=== PATIENT | female | born 1980 | race Two or more races ===

== ENCOUNTER 2020-02-21 15:55 | Emergency (ER) | payer MEDICARE, MEDICAID ==
[~2020-02-21] VITALS: Ht 154.9 cm; Wt 139.0 kg
[~2020-02-21 15:55] MED LIST: BUPR300T86 PO; BUTA-281 PO; CLON-371 PO; DOCU-28 PO; HYDR-3972 PO; LEVO150T8 PO; MOME13HF INH; ONDA8TAB6 PO; TIZA4TAB11 PO; TRAZ-251 PO
[2020-02-21 16:03] VITALS: BP 158/96
[2020-02-21] MEDS ORDERED: HYDROcodone/acetaminophen 10/325mg tab PO ONE (16:25)
[2020-02-21] MEDS ORDERED: ketorolac trometh inj. 60 MG/2 ML VIAL IM ONE (16:25)
[2020-02-21] MEDS ORDERED: dexamethasone sod phosphate 10mg/ml inj IM STA (16:25)
[2020-02-21] MEDS ORDERED: GABA600T PO (16:26)
== END 2020-02-21 17:39 | disposition home or self-care (01) ==
LOC: ER 15:56
DX: G51.1 Geniculate ganglionitis (principal); G43.909 Migraine, unspecified, not intractable, without status migrainosus; G89.29 Other chronic pain; F41.9 Anxiety disorder, unspecified; Z90.49 Acquired absence of other specified parts of digestive tract; Z98.890 Other specified postprocedural states; Z91.040 Latex allergy status; Z91.018 Allergy to other foods; Z79.899 Other long term (current) drug therapy
CPT/HCPCS: 96372; 99284; J1100; J1885

== ENCOUNTER 2020-02-25 21:01 | Emergency (ER) | payer MEDICARE, MEDICAID ==
[~2020-02-25] VITALS: Ht 157.5 cm; Wt 139.0 kg
[~2020-02-25 21:01] MED LIST changes: +GABA600T PO
[2020-02-25] MEDS ORDERED: carBAMazepine 100mg chewable tablet PO ONE (22:45)
[2020-02-25] MEDS ORDERED: ketorolac tromethamine 15mg/ml inj. IM ONE (23:25)
[2020-02-25] MEDS ORDERED: HYDROcodone/acetaminophen 5mg/325mg tablet PO ONE (23:25)
[2020-02-25] MEDS ORDERED: triamcinolone acetonide 40mg/ml inj IM ONE (23:25)
[2020-02-25] MEDS ORDERED: HYDR-3965 PO (23:34)
[2020-02-25 23:47] VITALS: BP 160/94
== END 2020-02-26 | disposition home or self-care (01) ==
LOC: ER 02-26 01:43
DX: R51 Headache (principal); G89.29 Other chronic pain; F41.9 Anxiety disorder, unspecified; Z90.49 Acquired absence of other specified parts of digestive tract; Z98.890 Other specified postprocedural states; Z91.040 Latex allergy status; Z88.8 Allergy status to other drugs, medicaments and biological substances; Z79.899 Other long term (current) drug therapy
CPT/HCPCS: 96372; 99284; J1885; J3301

== ENCOUNTER 2021-05-22 12:46 | Emergency (ER) | payer MEDICARE, MEDICAID ==
[~2021-05-22] VITALS: Ht 154.9 cm; Wt 143.2 kg
[2021-05-22 13:16] VITALS: BP 168/129
[2021-05-22] MEDS ORDERED: IOHEXOL 12MG/ML oral solution 500 ML BOTTLE PO ONE (13:20)
[2021-05-22 13:50] LABS: BASOPHILS % (AUTO) 0.3 % (0-1); EOSINOPHILS # (AUTO) 0.3 X10'3 (0-0.9); EOSINOPHILS % (AUTO) 2.6 % (0-6); HEMATOCRIT 45.4 % (35.0-45.0); HEMOGLOBIN 15.3 g/dl (12.0-16.0); LYMPHOCYTES # (AUTO) 2.7 X10'3 (1.1-4.8); LYMPHOCYTES % (AUTO) 22.3 % (21-51); MEAN CORPUSCULAR HGB CONC 33.7 g/dL (33.0-36.5); MEAN PLATELET VOLUME 6.8 FL (7.4-10.4); MONOCYTES # (AUTO) 0.7 X10'3 (0-0.9); MONOCYTES % (AUTO) 5.6 % (2-12); NEUTROPHILS # (AUTO) 8.3 X10'3 (1.8-7.7); NEUTROPHILS % (AUTO) 69.2 % (42-75); PLATELET COUNT 425 X10'3 (140-440); RED BLOOD COUNT 4.93 X10'6 (4.20-5.60)
[2021-05-22 13:53] LABS: ALANINE AMINOTRANSFERASE 30 U/L (12-78); ALBUMIN 3.4 G/DL (3.4-5.0); ALBUMIN/GLOBULIN RATIO 0.7 (1.1-1.5); ALKALINE PHOSPHATASE 125 IU/L (46-116); ANION GAP 7 (8-16); ASPARTATE AMINO TRANSFERASE 22 U/L (10-37); BILIRUBIN,TOTAL 0.2 MG/DL (0.1-1.0); BLOOD UREA NITROGEN 18 MG/DL (7-18); BUN/CREATININE RATIO 21.2 (6.6-38.0); CHLORIDE 106 MMOL/L (99-107); CREATININE 0.85 MG/DL (0.40-0.90); GLUCOSE 91 MG/DL (70-104); SODIUM 141 MMOL/L (135-145); TOTAL CARBON DIOXIDE 27.7 MMOL/L (24-32); TOTAL PROTEIN 8.2 G/DL (6.4-8.2); eGFR 74 ML/MIN
--- NOTE | 2021-05-22 16:19 | NUR ---
pt seen and dc'd by provider
== END 2021-05-22 16:21 | disposition home or self-care (01) ==
LOC: ER 12:46
DX: S29.011A Strain of muscle and tendon of front wall of thorax, initial encounter (principal); R07.89 Other chest pain; K92.0 Hematemesis; G43.909 Migraine, unspecified, not intractable, without status migrainosus; G89.29 Other chronic pain; F41.9 Anxiety disorder, unspecified; Z87.440 Personal history of urinary (tract) infections; Z90.49 Acquired absence of other specified parts of digestive tract; Z98.890 Other specified postprocedural states; Z91.040 Latex allergy status; Z88.8 Allergy status to other drugs, medicaments and biological substances; Z91.011 Allergy to milk products; Z79.899 Other long term (current) drug therapy; X58.XXXA Exposure to other specified factors, initial encounter; Y93.89 Activity, other specified; Y92.89 Other specified places as the place of occurrence of the external cause; Y99.8 Other external cause status
CPT/HCPCS: 36415; 70490; 71250; 80053; 85025; 93005; 99285

== ENCOUNTER 2021-12-20 11:22 | Emergency (ER) | payer MEDICARE, MEDICAID ==
[~2021-12-20] VITALS: Ht 154.9 cm; Wt 144.1 kg
[2021-12-20] MEDS ORDERED: proCHLORperazine 10 MG/2 ml inj IV ONE (11:55)
[2021-12-20] MEDS ORDERED: diphenhydrAMINE 50 mg/ml inj IV ONE (11:55)
[2021-12-20] MEDS ORDERED: NAPR-56 PO (13:56)
[2021-12-20 14:05] VITALS: BP 131/81
== END 2021-12-20 14:06 | disposition home or self-care (01) ==
LOC: ER 11:23
DX: G43.909 Migraine, unspecified, not intractable, without status migrainosus (principal); R11.2 Nausea with vomiting, unspecified; G89.29 Other chronic pain; G50.0 Trigeminal neuralgia; Z87.440 Personal history of urinary (tract) infections; Z90.49 Acquired absence of other specified parts of digestive tract; Z98.891 History of uterine scar from previous surgery; Z90.710 Acquired absence of both cervix and uterus; Z88.8 Allergy status to other drugs, medicaments and biological substances; Z91.040 Latex allergy status; Z91.011 Allergy to milk products; Z79.899 Other long term (current) drug therapy
CPT/HCPCS: 96374; 96375; 99284; J0780; J1200

== ENCOUNTER 2022-05-11 14:25 | Emergency (ER) | payer MEDICARE, MEDICAID ==
[~2022-05-11] VITALS: Ht 154.9 cm; Wt 145.4 kg
[~2022-05-11 14:25] MED LIST changes: +ACET-1025 PO; -BUPR300T86 PO; -BUTA-281 PO; -CLON-371 PO; -DOCU-28 PO; +FLUO-212 PO; -GABA600T PO; +GABA600T13 PO; -HYDR-3972 PO; -LEVO150T8 PO; +LEVO200T8 PO; -MOME13HF INH; -ONDA8TAB6 PO; -TRAZ-251 PO
[2022-05-11 15:31] LABS: CLARITY,URINE SLIGHTLY CLOUDY (Clear); COLOR,URINE YELLOW (Yellow); GLUCOSE, URINE NEGATIVE (Neg); KETONES,URINE NEGATIVE (Neg); LEUKOCYTE ESTERASE ,URINE NEGATIVE (Neg); NITRITES, URINE NEGATIVE (Neg); OCCULT BLOOD,URINE TRACE-INTACT (Neg); PROTEIN,URINE NEGATIVE (Neg); UROBILINOGEN,URINE 0.2 E.U/dL (0.2-1.0)
[2022-05-11 15:34] LABS: UA COLLECTION TYPE CLN CATCH MIDSTREAM
[2022-05-11 15:39] LABS: MUCUS STRANDS FEW /LPF (Neg); SQUAMOUS EPITHELIAL CELL,UR MANY /LPF (FEW)
[2022-05-11 15:40] LABS: BACTERIA,URINE FEW /HPF (Neg); RBC,URINE 0-2 /HPF (0-2); WBC,URINE 0-4 /HPF (0-4)
[2022-05-11 15:50] LABS: BASOPHILS # (AUTO) 0.1 X10'3 (0-0.2); BASOPHILS % (AUTO) 0.4 % (0-1); EOSINOPHILS # (AUTO) 0.3 X10'3 (0-0.9); EOSINOPHILS % (AUTO) 1.9 % (0-6); HEMATOCRIT 46.1 % (35.0-45.0); HEMOGLOBIN 15.6 g/dl (12.0-16.0); LYMPHOCYTES # (AUTO) 3.5 X10'3 (1.1-4.8); LYMPHOCYTES % (AUTO) 25.3 % (21-51); MEAN CORPUSCULAR HEMOGLOBIN 31.5 PG (27.0-31.0); MEAN CORPUSCULAR VOLUME 92.7 FL (78-98); MEAN PLATELET VOLUME 6.9 FL (7.4-10.4); MONOCYTES # (AUTO) 0.8 X10'3 (0-0.9); MONOCYTES % (AUTO) 5.6 % (2-12); NEUTROPHILS # (AUTO) 9.3 X10'3 (1.8-7.7); NEUTROPHILS % (AUTO) 66.8 % (42-75); PLATELET COUNT 377 X10'3 (140-440); RED BLOOD COUNT 4.97 X10'6 (4.20-5.60); RED CELL DISTRIBUTION WIDTH 13.5 % (11.5-14.5); WHITE BLOOD COUNT 13.9 X10'3 (4.5-11.0)
[2022-05-11 16:02] LABS: ALANINE AMINOTRANSFERASE 20 U/L (12-78); ALBUMIN 3.8 G/DL (3.4-5.0); ALBUMIN/GLOBULIN RATIO 0.8 (1.1-1.5); ALKALINE PHOSPHATASE 108 IU/L (46-116); ANION GAP 9 (8-16); ASPARTATE AMINO TRANSFERASE 20 U/L (10-37); BILIRUBIN,TOTAL 0.3 MG/DL (0.1-1.0); BLOOD UREA NITROGEN 13 MG/DL (7-18); BUN/CREATININE RATIO 17.6 (6.6-38.0); CALCIUM 9.4 MG/DL (8.5-10.1); CHLORIDE 102 MMOL/L (99-107); CREATININE 0.74 MG/DL (0.40-0.90); GLUCOSE 82 MG/DL (70-104); POTASSIUM 3.9 MMOL/L (3.5-5.1); SODIUM 136 MMOL/L (135-145); TOTAL CARBON DIOXIDE 25.3 MMOL/L (24-32); TOTAL PROTEIN 8.7 G/DL (6.4-8.2); eGFR 86 ML/MIN
[2022-05-11] MEDS ORDERED: normal saline 1000ML IV soln IVB ONE (16:05)
[2022-05-11] MEDS ORDERED: morphine 4 MG/ML inj SYRINge IV ONE (16:05)
[2022-05-11] MEDS ORDERED: SULF1TAB49 PO (18:09)
--- NOTE | 2022-05-11 19:00 | NUR ---
pt refusing to leave until she can take an antibiotic and pain meds. Provider notified and rec order for bactrim
[2022-05-11 20:00] VITALS: BP 132/83
[2022-05-11] MEDS ORDERED: sulfamethoxazole/trimethoprim DS (800/160mg) tablet PO ONE (20:10)
--- NOTE | 2022-05-11 20:28 | NUR ---
Patient had an issue with me from the moment I walked in the room to give her Meds. Not happy that provider did not give her more pain medications (FAUSTO Stewart said no). Mad about BP cuff and how I took it off "I have neuropathy", thinks her BP is too high and "we seem not to care". IV flush "burned" etc. She then asked for another nurse "I don't like your attitude". I got KYLAH Zarate her primary nurse and told the patient did not want me discharging her.
== END 2022-05-11 20:30 | disposition home or self-care (01) ==
LOC: ER 14:25
DX: N10 Acute pyelonephritis (principal); R10.84 Generalized abdominal pain; R19.7 Diarrhea, unspecified; G43.909 Migraine, unspecified, not intractable, without status migrainosus; G89.29 Other chronic pain; F41.9 Anxiety disorder, unspecified; F31.9 Bipolar disorder, unspecified; F12.90 Cannabis use, unspecified, uncomplicated; Z87.440 Personal history of urinary (tract) infections; Z90.49 Acquired absence of other specified parts of digestive tract; Z90.710 Acquired absence of both cervix and uterus; Z98.890 Other specified postprocedural states; Z91.040 Latex allergy status; Z88.8 Allergy status to other drugs, medicaments and biological substances; Z91.011 Allergy to milk products; Z79.2 Long term (current) use of antibiotics; Z79.899 Other long term (current) drug therapy
CPT/HCPCS: 36415; 74176; 80053; 81001; 85025; 96361; 96374; 99284; C1758; J2270; J7030

== ENCOUNTER 2022-09-04 11:25 | Emergency (ER) | payer MEDICARE, MEDICAID ==
[~2022-09-04] VITALS: Ht 154.9 cm; Wt 145.0 kg
[2022-09-04 12:02] LABS: URINE HCG NEGATIVE (NEG)
[2022-09-04 12:04] LABS: BASOPHILS # (AUTO) 0.1 X10'3 (0-0.2); BASOPHILS % (AUTO) 0.5 % (0-1); EOSINOPHILS # (AUTO) 0.3 X10'3 (0-0.9); HEMATOCRIT 47.1 % (35.0-45.0); HEMOGLOBIN 15.7 g/dl (12.0-16.0); LYMPHOCYTES # (AUTO) 3.4 X10'3 (1.1-4.8); LYMPHOCYTES % (AUTO) 24.6 % (21-51); MEAN CORPUSCULAR HEMOGLOBIN 30.4 PG (27.0-31.0); MEAN CORPUSCULAR HGB CONC 33.3 g/dL (33.0-36.5); MEAN CORPUSCULAR VOLUME 91.2 FL (78-98); MEAN PLATELET VOLUME 6.7 FL (7.4-10.4); MONOCYTES # (AUTO) 0.8 X10'3 (0-0.9); MONOCYTES % (AUTO) 6.2 % (2-12); NEUTROPHILS # (AUTO) 9.1 X10'3 (1.8-7.7); NEUTROPHILS % (AUTO) 66.7 % (42-75); PLATELET COUNT 449 X10'3 (140-440); RED BLOOD COUNT 5.17 X10'6 (4.20-5.60); WHITE BLOOD COUNT 13.7 X10'3 (4.5-11.0)
[2022-09-04 12:07] LABS: CLARITY,URINE CLEAR (Clear); COLOR,URINE YELLOW (Yellow); GLUCOSE, URINE NEGATIVE (Neg); KETONES,URINE NEGATIVE (Neg); LEUKOCYTE ESTERASE ,URINE NEGATIVE (Neg); NITRITES, URINE NEGATIVE (Neg); OCCULT BLOOD,URINE SMALL (Neg); PH,URINE 5.5 (4.8-8.0); PROTEIN,URINE NEGATIVE (Neg); UROBILINOGEN,URINE 0.2 E.U/dL (0.2-1.0)
[2022-09-04 12:13] LABS: UA COLLECTION TYPE VOIDED
[2022-09-04 12:15] LABS: MUCUS STRANDS FEW /LPF (Neg); SQUAMOUS EPITHELIAL CELL,UR MANY /LPF (FEW)
[2022-09-04 12:15] LABS: ALANINE AMINOTRANSFERASE 18 U/L (12-78); ALBUMIN 3.7 G/DL (3.4-5.0); ALBUMIN/GLOBULIN RATIO 0.8 (1.1-1.5); ALKALINE PHOSPHATASE 111 IU/L (46-116); ANION GAP 9 (8-16); ASPARTATE AMINO TRANSFERASE 24 U/L (10-37); BILIRUBIN,TOTAL 0.3 MG/DL (0.1-1.0); BLOOD UREA NITROGEN 22 MG/DL (7-18); BUN/CREATININE RATIO 22.7 (6.6-38.0); CALCIUM 9.4 MG/DL (8.5-10.1); CHLORIDE 98 MMOL/L (99-107); CREATININE 0.97 MG/DL (0.40-0.90); GLUCOSE 106 MG/DL (70-104); LIPASE 84 U/L (73-393); SODIUM 134 MMOL/L (135-145); TOTAL CARBON DIOXIDE 27.2 MMOL/L (24-32); TOTAL PROTEIN 8.5 G/DL (6.4-8.2); eGFR 63 ML/MIN
[2022-09-04 12:16] LABS: BACTERIA,URINE FEW /HPF (Neg); RBC,URINE 0-2 /HPF (0-2); WBC,URINE 0-4 /HPF (0-4)
[2022-09-04] MEDS ORDERED: oxyCODONE/APAP 5-325mg tablet PO ONE (13:50)
[2022-09-04] MEDS ORDERED: ondansetron/PF 4mg/2ml inj IV ONE (14:20)
[2022-09-04] MEDS ORDERED: ondansetron 4mg rapidly disintigrating tab PO ONE (14:30)
[2022-09-04] MEDS ORDERED: OXYC-145 PO (14:47)
[2022-09-04 14:59] VITALS: BP 145/93
== END 2022-09-04 15:00 | disposition home or self-care (01) ==
LOC: ER 11:25
DX: M54.50 Low back pain, unspecified (principal); R10.9 Unspecified abdominal pain; G43.909 Migraine, unspecified, not intractable, without status migrainosus; G89.29 Other chronic pain; F41.9 Anxiety disorder, unspecified; F31.9 Bipolar disorder, unspecified; F17.200 Nicotine dependence, unspecified, uncomplicated; F12.90 Cannabis use, unspecified, uncomplicated; Z90.49 Acquired absence of other specified parts of digestive tract; Z90.710 Acquired absence of both cervix and uterus; Z98.890 Other specified postprocedural states; Z88.8 Allergy status to other drugs, medicaments and biological substances; Z91.040 Latex allergy status; Z91.011 Allergy to milk products; Z79.899 Other long term (current) drug therapy
CPT/HCPCS: 36415; 76770; 80053; 81001; 81025; 83690; 85025; 99284

== ENCOUNTER 2023-04-25 18:50 | Emergency (ER) | payer MEDICARE, MEDICAID ==
[~2023-04-25] VITALS: Ht 154.9 cm; Wt 141.8 kg
[~2023-04-25 18:50] MED LIST changes: +OXYC-145 PO
[2023-04-25 19:14] VITALS: TEMP 98.8
[2023-04-25 22:24] VITALS: BP 135/85; PULSE 91; RESP 18; O2SAT 94
[2023-04-25] MEDS ORDERED: clindamycin 150mg capsule PO ONE (23:25)
[2023-04-25] MEDS ORDERED: HYDROcodone/acetaminophen 10/325mg tab PO ONE ×2 (23:25→23:35)
[2023-04-25] MEDS ORDERED: PENI500T2 PO (23:25)
== END 2023-04-25 23:39 | disposition home or self-care (01) ==
LOC: ER 18:52
DX: K04.7 Periapical abscess without sinus (principal); G50.0 Trigeminal neuralgia
CPT/HCPCS: 99283

== ENCOUNTER 2023-11-16 14:50 | Emergency (ER) | payer MEDICARE, MEDICAID ==
[~2023-11-16] VITALS: Ht 170.2 cm; Wt 118.0 kg
[2023-11-16 16:03] VITALS: BP 171/104; PULSE 93; RESP 18; TEMP 98.2; O2SAT 95
[2023-11-16] MEDS ORDERED: iohexol 350MG/ML 100ml bottle IV ONE (18:09)
[2023-11-16 18:58] LABS: BILIRUBIN,URINE NEGATIVE (Neg); CLARITY,URINE SLIGHTLY CLOUDY (Clear); COLOR,URINE YELLOW (Yellow); GLUCOSE, URINE NEGATIVE (Neg); KETONES,URINE NEGATIVE (Neg); LEUKOCYTE ESTERASE ,URINE NEGATIVE (Neg); NITRITES, URINE NEGATIVE (Neg); OCCULT BLOOD,URINE TRACE-INTACT (Neg); PROTEIN,URINE NEGATIVE (Neg); UROBILINOGEN,URINE 0.2 E.U/dL (0.2-1.0)
[2023-11-16 19:12] LABS: URINE AMPHETAMINE SCREEN NEGATIVE (Neg); URINE BARBITUATE SCREEN NEGATIVE (Neg); URINE BENZODIAZEPINES SCREEN NEGATIVE (Neg); URINE CANNABINOID SCREEN POSITIVE (Neg); URINE COCAINE SCREEN NEGATIVE (Neg); URINE METHADONE SCREEN NEGATIVE (Neg); URINE OPIATE SCREEN NEGATIVE (Neg); URINE PHENCYCLIDINE SCREEN NEGATIVE (Neg)
[2023-11-16 19:21] LABS: BASOPHILS # (AUTO) 0.1 X10'3 (0-0.2); BASOPHILS % (AUTO) 0.6 % (0-1); EOSINOPHILS # (AUTO) 0.2 X10'3 (0-0.9); EOSINOPHILS % (AUTO) 1.4 % (0-6); HEMATOCRIT 43.2 % (35.0-45.0); HEMOGLOBIN 14.8 g/dl (12.0-16.0); LYMPHOCYTES # (AUTO) 4.4 X10'3 (1.1-4.8); MEAN CORPUSCULAR HEMOGLOBIN 31.8 PG (27.0-31.0); MEAN CORPUSCULAR HGB CONC 34.3 g/dL (33.0-36.5); MEAN CORPUSCULAR VOLUME 92.7 FL (78-98); MEAN PLATELET VOLUME 7.1 FL (7.4-10.4); MONOCYTES # (AUTO) 0.6 X10'3 (0-0.9); MONOCYTES % (AUTO) 3.6 % (2-12); NEUTROPHILS # (AUTO) 10.5 X10'3 (1.8-7.7); NEUTROPHILS % (AUTO) 66.4 % (42-75); PLATELET COUNT 438 X10'3 (140-440); RED BLOOD COUNT 4.66 X10'6 (4.20-5.60); RED CELL DISTRIBUTION WIDTH 12.4 % (11.5-14.5); WHITE BLOOD COUNT 15.9 X10'3 (4.5-11.0)
[2023-11-16 19:23] LABS: UA COLLECTION TYPE CLN CATCH MIDSTREAM
[2023-11-16 19:24] LABS: BACTERIA,URINE 1+ /HPF (Neg); MUCUS STRANDS MANY /LPF (Neg); SQUAMOUS EPITHELIAL CELL,UR MANY /LPF (FEW); WBC,URINE 0-4 /HPF (0-4)
[2023-11-16 19:25] LABS: TRANSITIONAL EPI CELLS,URINE FEW /HPF
[2023-11-16 19:31] LABS: ALANINE AMINOTRANSFERASE 27 U/L (12-78); ALBUMIN 3.2 G/DL (3.4-5.0); ALBUMIN/GLOBULIN RATIO 0.6 (1.1-1.5); ALKALINE PHOSPHATASE 129 IU/L (46-116); ANION GAP 8 (8-16); BILIRUBIN,TOTAL 0.2 MG/DL (0.1-1.0); BLOOD UREA NITROGEN 15 MG/DL (7-18); BUN/CREATININE RATIO 16.1 (10.0-20.0); CALCIUM 8.9 MG/DL (8.5-10.1); CHLORIDE 101 MMOL/L (99-107); CREATININE 0.93 MG/DL (0.40-0.90); GLUCOSE 82 MG/DL (70-104); SODIUM 138 MMOL/L (135-145); TOTAL CARBON DIOXIDE 29.1 MMOL/L (24-32); TOTAL PROTEIN 8.3 G/DL (6.4-8.2); eCRCL 76 ML/MIN; eGFR 66 ML/MIN
[2023-11-16 19:47] LABS: ASPARTATE AMINO TRANSFERASE 18 U/L (10-37)
[2023-11-16 19:50] LABS: ETHANOL < 10 MG/DL (<10)
[2023-11-16] MEDS ORDERED: AMOX-117 PO (20:22)
[2023-11-16] MEDS ORDERED: DIF150T PO (20:25)
== END 2023-11-16 21:25 | disposition home or self-care (01) ==
LOC: ER 14:51
DX: J32.9 Chronic sinusitis, unspecified (principal); Z91.040 Latex allergy status; Z91.011 Allergy to milk products; Z88.8 Allergy status to other drugs, medicaments and biological substances; Z91.048 Other nonmedicinal substance allergy status; F32.9 Major depressive disorder, single episode, unspecified; G89.29 Other chronic pain; F41.9 Anxiety disorder, unspecified; G43.909 Migraine, unspecified, not intractable, without status migrainosus; F12.90 Cannabis use, unspecified, uncomplicated
CPT/HCPCS: 70450; 70496; 71045; 80053; 80305; 80320; 81001; 84484; 85025; 93005; 99285; J3490; Q9967

== ENCOUNTER 2024-05-15 13:38 | Emergency (ER) | payer MEDICARE, MEDICAID ==
[~2024-05-15] VITALS: Ht 154.9 cm; Wt 143.2 kg
[2024-05-15] MEDS: normal saline 1000ML IV soln IVB ONE (16:51)
[2024-05-15] MEDS: diphenhydrAMINE 50 mg/ml inj IV ONE (17:29)
[2024-05-15] MEDS: proCHLORperazine 10 MG/2 ml inj IV ONE (17:29)
[2024-05-15] MEDS: ketorolac trometh 15mg/ml vial 15 MG/ML ML IV ONE (17:30)
[2024-05-15] MEDS: HYDROmorphone 1 mg/ml syringe IM ONE (17:48)
[2024-05-15 18:36] VITALS: BP 138/94; PULSE 85; RESP 16; TEMP 98.2; O2SAT 96
== END 2024-05-15 18:39 | disposition home or self-care (01) ==
LOC: ER 13:38
DX: G50.0 Trigeminal neuralgia (principal); G43.909 Migraine, unspecified, not intractable, without status migrainosus; F31.9 Bipolar disorder, unspecified; G89.29 Other chronic pain; Z88.8 Allergy status to other drugs, medicaments and biological substances; Z88.1 Allergy status to other antibiotic agents; Z79.899 Other long term (current) drug therapy; Z91.040 Latex allergy status; Z91.011 Allergy to milk products; Z87.440 Personal history of urinary (tract) infections; Z90.49 Acquired absence of other specified parts of digestive tract; Z90.710 Acquired absence of both cervix and uterus
CPT/HCPCS: 96361; 96372; 96374; 96375; 99284; J0780; J1171; J1200; J1885; J7030